=== PATIENT | male | born 1980 | race Caucasian/White ===

== ENCOUNTER 2023-10-07 07:22 | Emergency (ER) | payer SELFPAY ==
--- NOTE | ~2023-10-07 | XR_ITS ---
EXAMINATION: XR CHEST CLINICAL INFORMATION: Cough. COMPARISON: None available. TECHNIQUE: 2 views of the chest were obtained. FINDINGS: The lungs are clear. The cardiomediastinal silhouette is normal in size. There is no pleural effusion or pneumothorax. No acute osseous abnormality. XR/XR chest 2V IMPRESSION: No acute cardiopulmonary findings.
[2023-10-07 07:26] VITALS: BP 122/70; PULSE 96; RESP 20; TEMP 38.1; O2SAT 95; BMI 25.8
[2023-10-07] MEDS: Acetaminophen 325 MG TABLET 650 MG PO (07:32)
[2023-10-07 07:59] LABS: IDNOW Serial# 08D9AD1C; Influenza A Positive (Negative); Influenza B2 Negative (Negative)
[2023-10-07 08:06] LABS: COVID-19 Test Negative (Negative); IDNOW Serial# BCCEAD1C
[2023-10-07 08:57] VITALS: BP 117/74; PULSE 90; RESP 15; TEMP 37.3; O2SAT 95
--- NOTE | 2023-10-07 09:16 | ED.URI ---
HPI - URI/Sore Throat General Chief Complaint: Upper Respiratory Symptoms Stated Complaint: cold like symptoms Time Seen by Provider: 10/07/23 09:03 Source: patient Mode of arrival: ambulatory Limitations: no limitations History of Present Illness HPI Narrative: Patient is a 42-year-old male presents emergency department for evaluation of viral type symptoms including intermittent headache without dizziness/vision changes /neck pain, generalized body aches, fevers, dry nonproductive cough, nausea without vomiting for the past 3 days. Denies any known sick contacts. Denies any genitourinary symptoms. Denies constipation or diarrhea. However he also states that for the past 2 weeks he has been noticing bright red blood in his bowel movements, this does not occur every time but at least once or twice a day and states it is typically only when my stomach is empty . States he is not straining to have a bowel movement. Denies any history of this event happened in the past. Denies any rectal pain. He does endorse intermittent lower abdominal discomfort which he is not currently experiencing. Denies any recent unintentional weight loss. Denies any known family history of colon cancer. Related Data Allergies Allergy/AdvReac Type Severity Reaction Status Date / Time No Known Allergies Allergy Verified 10/07/23 07:28 Review of Systems Review of Systems: Yes all other systems are reviewed and are negative PMFSH Past Medical History Attestation statement: The following information was validated with the patient. Source: old records reviewed Social History Social History Advance Directives: No Advance Directives Information Provided: No Physical Exam Vital Signs: Vital Signs: Last Vital Signs Temp 99.1 F 10/07/23 08:57 Pulse 90 10/07/23 08:57 Resp 15 10/07/23 08:57 BP 117/74 10/07/23 08:57 Pulse Ox 95 10/07/23 08:57 O2 Del Method Room Air 10/07/23 08:57 BMI result Body Mass Index 25.8 Appearance: Alert.?Oriented to person, place and time. No acute distress.?Normal affect. Eyes: Pupils equal, round and reactive to light.? ENT: Pharynx normal.?? TM normal bilaterally. Neck: Normal inspection.? Neck supple.?? No cervical lymphadenopathy CVS: Heart sounds normal. Normal heart rate and rhythm.? Pulses normal.?? Respiratory: No respiratory distress.? Lung sounds clear to auscultation bilaterally?? Abdomen: Soft and non-tender. Normoactive bowel sounds. No pulsatile mass.?? Rectal: performed with information receptionist, ED electrical test technician. No evidence of hemorrhoids, fissure, palpable mass on OZZY Skin: Skin warm and dry.? Normal skin color.? Extremities: No lower extremity edema.? Neuro: Moves all extremities spontaneously. Sensation intact bilaterally. No focal neuro deficits. Ambulates with normal steady gait. Medications Administered Discontinued Medications Generic Name Dose Route Start Last Admin Trade Name Patrice PRN Reason Stop Dose Admin Acetaminophen 650 mg 10/07/23 07:29 10/07/23 07:32 Acetaminophen 325 Mg Tablet PO 10/07/23 07:30 650 mg ONCE ONE Administration Medical Decision Making Medical Decision Making [facility] Narrative: Patient is a 42-year-old male with no reported past medical history, presenting for evaluation of viral symptoms x3 days in addition to BRBPR x2 weeks. influenza a testing is positive today which explains his viral type symptoms, given duration of symptom onset would not be candidate for Tamiflu at this time. At this time history and physical exam not consistent with ACS/PE/pneumonia. Well-appearing, nontoxic, Initially presented febrile which resolved after Tylenol, no tachycardia or tachypnea/hypoxia. Speaking clear full sentences, ambulatory with steady gait. Discussed conservative treatment including rest, hydration, Tylenol/ibuprofen as needed for fever and body aches, saline nasal spray, humidifier, [id number] cold medication. Regarding the BRBPR, his abdominal examination is benign, no rigidity, no guarding, no rebound tenderness, clinically a lower suspicion for diverticulitis, colitis, with no risk factors for C.Diff, and stools are not loose. rectal examination without evidence of hemorrhoids, fissures, palpable mass on OZZY. occult stool testing is negative. CBC is without leukocytosis or anemia. BMP is overall unremarkable. Mildly elevated AST/ALT (No prior for comparison), abdominal examination benign, no right upper tenderness to palpation, negative Portillo sign, and lipase normal, Suspect this to be an incidental finding today which can be further worked up outpatient. he does endorse frequent alcohol consumption and a diet high in fatty and greasy foods Advised to follow-up with primary care provider within 3 days, he was also provided with contact information for the GI office for further evaluation. discussed reasons to return back to the emergency department. All questions were answered. Patient discharged home in stable condition. Differential Diagnosis Differential Diagnoses: The differential diagnosis associated with the presentation includes ( as noted above) Admission/Observation Consideration of admission/observation: Escalation of care including admission/observation considered ( as noted above) Lab Data MDM Lab Attestation statement: I reviewed the patient's lab results. ( as noted above) 10/07/23 09:45 10/07/23 09:45 Labs: Lab Results 10/07/23 10/07/23 Range/Units 07:32 09:45 WBC 6.8 (4.8-10.8) X10*3/uL RBC 4.71 (4.60-5.80) X10*6/uL Hgb 15.2 (14.0-18.0) g/dl Hct 44.5 (42.0-52.0) % MCV 94.5 (80.0-98.0) fL MCH 32.3 (27.0-33.0) pg MCHC 34.2 (31.0-36.0) g/dl RDW 12.8 (11.0-16.0) % Plt Count 159 L (160-400) X10*3/uL MPV 9.4 (9.4-12.4) fL Immature Gran % (Auto) 0.1 (0.0-0.4) % Neut % (Auto) 76.2 H (45-73) % Lymph % (Auto) 13.4 L (20-40) % Ponce % (Auto) 10.0 (2-11) % Eos % (Auto) 0.0 (0-4) % Baso % (Auto) 0.3 (0-2) % Lymph # (Auto) 0.9 L (1.2-4.9) X10*3/uL Ponce # (Auto) 0.7 (0.1-1.2) X10*3/uL Eos # (Auto) 0.0 (0.0-0.4) X10*3/uL Baso # (Auto) 0.0 (0.0-0.2) X10*3/uL Abs Immat Gran (auto) 0.01 (0.00-0.03) X10*3/uL Absolute Neuts (auto) 5.2 (2.0-8.3) x10*3/uL Absolute Nucleated RBC 0.000 (0.0-0.012) X10*3/uL Nucleated RBC % (auto) 0.0 (0.0-0.2) /100WBC Sodium 134 L (135-145) mmol/L Potassium 3.9 (3.3-5.1) mmol/L Chloride 105 (96-108) mmol/L Carbon Dioxide 19 L (22-29) mmol/L Anion Gap 14 (12-20) BUN 13 (9-16) mg/dL Creatinine 0.94 (0.5-1.4) mg/dL Estim Creat Clear Calc 101.3 Estimated GFR > 60 Random Glucose 87 (60-115) mg/dL Calcium 9.5 (8.4-10.2) mg/dL Total Bilirubin 0.5 (0.0-1.0) mg/dL AST 62 H (5-37) U/L ALT 84 H (0-40) U/L Alkaline Phosphatase 84 (39-117) U/L Total Protein 8.1 H (6.5-8.0) g/dL Albumin 4.5 (3.5-5.0) g/dL Lipase 25 (8-78) U/L Stool Occult Blood NEGATIVE (NEGATIVE) COVID-19 ([facility]) Negative (Negative) COVID-19 Clin Com See Note Influenza Type A (KING) Positive A (Negative) Influenza Type B (KING) Negative (Negative) Influenza A & B Note See Note Independent Historian Clinical information obtained from an independent historian. History obtained from or confirmed by: Spouse ( present who confirms history) External Record Review External record reviewed: Outpatient record Tests considered The following testing was considered but not selected: CT AP - deferred, benign exam, see narrative above Discharge Plan Discharge Clinical Impression: Influenza, Elevated liver enzymes Patient Disposition: Home, Self-Care Instructions: Influenza (ED) Additional Instructions: You have tested positive for the flu today. Be sure to rest, stay well hydrated drinking plenty of fluids, eat small frequent meals. Tylenol/ibuprofen can be used as needed for fever/pain. [id number] cold medications may be helpful as well for symptoms. Saline nasal spray, humidifier may be helpful for nasal congestion. Should remain out of school/ work until symptoms have resolved and have been without a fever for 24 hours without the use of Tylenol or ibuprofen. There was no evidence of your blood in your stool today which is reassuring, your stool has been sent for testing of different bacterial and viral infections which could potentially cause your symptoms. These results unfortunately will not be available right away. Should anything result as positive you will receive a phone call from the hospital. Your blood counts today were normal which is also reassuring, no evidence of anemia. Your liver labs are very slightly elevated, I suspect this was an incidental finding, which you may follow-up further outpatient with your primary care provider in regards to. I have also provided contact information for the GI office, for further evaluation of the intermittent blood in your stool. You may return to the emergency department with any new or worsening symptoms or concerns. Referrals: Jessica Disla MD [Physician] -
[2023-10-07 09:50] LABS: MANUAL DIFF FLAG NO
[2023-10-07 09:53] LABS: Basophils Percent Auto 0.3 % (0-2); Hematocrit 44.5 % (42.0-52.0); Hemoglobin 15.2 g/dl (14.0-18.0); Imm Gran Abs Auto 0.01 X10*3/uL (0.00-0.03); Imm Gran Pct Auto 0.1 % (0.0-0.4); Lymphocytes Absolute Auto 0.9 X10*3/uL (1.2-4.9); Lymphocytes Percent Auto 13.4 % (20-40); Mean Corpuscular HGB Conc 34.2 g/dl (31.0-36.0); Mean Corpuscular Hemoglobin 32.3 pg (27.0-33.0); Mean Corpuscular Volume 94.5 fL (80.0-98.0); Mean Platelet Volume 9.4 fL (9.4-12.4); Monocytes Absolute Auto 0.7 X10*3/uL (0.1-1.2); Neutrophils Absolute Auto 5.2 x10*3/uL (2.0-8.3); Neutrophils Percent Auto 76.2 % (45-73); Platelet Count 159 X10*3/uL (160-400); Red Blood Count 4.71 X10*6/uL (4.60-5.80); Red Cell Distribution Width 12.8 % (11.0-16.0); White Blood Count 6.8 X10*3/uL (4.8-10.8)
[2023-10-07 09:54] LABS: OBS Int Ctl Valid YES; OBS1 NEGATIVE (NEGATIVE)
[2023-10-07 10:07] LABS: Alanine Aminotransferase 84 U/L (0-40); Albumin Level 4.5 g/dL (3.5-5.0); Alkaline Phosphatase 84 U/L (39-117); Anion Gap 14 (12-20); Aspartate Amino Transferase 62 U/L (5-37); Bilirubin Total 0.5 mg/dL (0.0-1.0); Blood Urea Nitrogen 13 mg/dL (9-16); Calcium 9.5 mg/dL (8.4-10.2); Carbon Dioxide 19 mmol/L (22-29); Chloride 105 mmol/L (96-108); Creatinine Clr Calc Pharmacy 101.3; Estimated Glomerular Filt Rate > 60; Glucose Random 87 mg/dL (60-115); Lipase 25 U/L (8-78); Potassium 3.9 mmol/L (3.3-5.1); Sodium 134 mmol/L (135-145); Total Protein 8.1 g/dL (6.5-8.0)
[2023-10-07 11:08] LABS: Adenovirus F 40/41 Not Detected (Not Detect.); Astrovirus Not Detected (Not Detect.); Campylobacter Not Detected (Not Detect.); Cryptosporidium Not Detected (Not Detect.); Cyclospora cayetanensis Not Detected (Not Detect.); E. coli EAEC Not Detected (Not Detect.); E. coli EPEC Not Detected (Not Detect.); E. coli ETEC Not Detected (Not Detect.); E. coli STEC Not Detected (Not Detect.); Entamoeba histolytica Not Detected (Not Detect.); Giardia lamblia Not Detected (Not Detect.); Norovirus GI/GII Not Detected (Not Detect.); Plesiomonas shigelloides Not Detected (Not Detect.); Rotavirus A Not Detected (Not Detect.); Salmonella Not Detected (Not Detect.); Sapovirus Not Detected (Not Detect.); Shigella sp./EIEC Not Detected (Not Detect.); Vibrio Not Detected (Not Detect.); Vibrio Cholerae Not Detected (Not Detect.); Yersinia enterocolitica Not Detected (Not Detect.)
== END 2023-10-07 10:35 | disposition home or self-care (01) ==
PROVIDERS: Nurse Practitioner Family; Emergency Provider Emergency Medicine
DX: J10.1 Influenza due to other identified influenza virus with other respiratory manifestations (principal); R51.9 Headache, unspecified; R05.9 Cough, unspecified; R11.2 Nausea with vomiting, unspecified; M54.2 Cervicalgia; M79.10 Myalgia, unspecified site; R79.89 Other specified abnormal findings of blood chemistry; Z11.52 Encounter for screening for COVID-19; Z20.822 Contact with and (suspected) exposure to COVID-19; Z79.899 Other long term (current) drug therapy
CPT/HCPCS: 36415; 71046; 80053; 82272; 83690; 85025; 87502; 87507; 87635; 99284